=== PATIENT | female | born 1995 | race Caucasian/White ===

== ENCOUNTER 2017-01-28 19:27 | Inpatient (IN) ==
[2017-01-28] MEDS ORDERED: ONDANSETRON 4 MG/2 ML VIAL IV PRN (21:52)
[2017-01-28] MEDS ORDERED: MEPERIDINE 50 MG/1 ML VIAL IM PRN (21:52)
[2017-01-28] MEDS ORDERED: BUTORPHANOL 1 MG/ML VIAL IV PRN (21:52)
[2017-01-28] MEDS ORDERED: LACTATED RINGERS 250 ML IV ONE (21:52)
[2017-01-28] MEDS: LACTATED RINGERS 1,000 ML IV SCH ×2 (21:55→23:41)
[2017-01-28 22:23] LABS: Basophils % 0.2 % (0.0-0.8); Eosinophils # 0.1 10*3/uL (0.0-0.87); Eosinophils % 0.4 % (0.00-10.9); Hematocrit 35.9 VOL% (35.7-47.0); Hemoglobin 12.1 GM/DL (12.0-16.0); Immature Granulocytes % 1.2 %; Immature Granulocytes Absolute 0.16 #; Lymphocytes # 2.7 10*3/uL (1.4-4.0); Lymphocytes % 20.8 % (21.3-54.2); Mean Corpuscular HGB Conc 33.7 GM/DL (32-36); Mean Corpuscular Hemoglobin 28 PG (27-34); Mean Corpuscular Volume 83.7 FL (87-102); Mean Platelet Volume 12.7 FL (9.6-12.0); Monocytes # 0.9 10*3/uL (0.11-0.8); Monocytes % 6.8 % (1.7-12.7); Neutrophils # 9.1 10*3/uL (1.4-7.4); Neutrophils % 70.6 % (38.7-73.9); Platelet Count 147 T/CUMM (130-400); Red Blood Count 4.29 MC/CUMM (3.8-5.5); Red Cell Distribution Width 14.9 % (9.3-17.3); White Blood Count 12.9 T/CUMM (4-12)
[2017-01-28] MEDS ORDERED: PROMETHAZINE 25 MG/1 ML VIAL IM ONE (22:32)
[2017-01-28] MEDS ORDERED: FAMOTIDINE 20 MG/2 ML VIAL IV ONE (22:32)
[2017-01-28] MEDS ORDERED: LACTATED RINGERS 1,000 ML IV ONE (22:32)
[2017-01-28] MEDS ORDERED: ePHEDrine 50 MG/ML AMP IV PRN (22:32)
[2017-01-28] MEDS ORDERED: CITRIC ACID/SODIUM CITRATE 30 ML UDCUP PO ONE (22:32)
[2017-01-28] MEDS ORDERED: fentaNYL 2 MCG/ROPIV 0.2% EPID 150 ML EPIDURAL SCH (22:32)
[2017-01-28] MEDS ORDERED: diphenhydrAMINE 50 MG/1 ML VIAL IV PRN ×2 (22:32)
[2017-01-28] MEDS ORDERED: hydrOXYzine HCL 25 MG/1 ML VIAL IM PRN (22:32)
[2017-01-29 01:16] LABS: Apearance,Urine CLEAR (Clear); Bilirubin,Urine Negative (Negative); Blood, Urine Negative (Negative); Glucose,Urine (UA) Negative (Negative); Ketones,Urine 20 mg/dL (Negative); Mucus,Urine Few /LPF (Occasional); Nitrite,Urine Negative (Negative); Protein,Urine 30 MG/DL; RBC,Urine 2 /HPF (0-4); Squamous Epithelial Cell,Urine Occasional /HPF (0-10); Urine Color Yellow (Yellow); Urine Specific Gravity 1.019 (1.001-1.035); Urine Urobilinogen < 2.0 EU/DL (0.2-1.0); WBC,Urine 1 /HPF (0-6)
[2017-01-29] MEDS ORDERED: OXYTOCIN/LR 20 UNIT/1,000 ML BAG IV ONE ×2 (04:45→05:57)
[2017-01-29] MEDS ORDERED: OXYTOCIN/LR 20 UNIT/1,000 ML BAG IV SCH (05:00)
--- NOTE | 2017-01-29 05:53 | OB/GYN History & Physical ---
History of Present Illness Chief complaint: Spontaneous rupture membranes, 38 weeks and 4 days History of present illness: Ms. Ennis is a 21 year old female 1 para 0 admitted in active labor, spontaneous rupture membranes at 38 weeks and 4 days. Onset of labor at 11:32 PM, heart tones category 1, fluid was clear, contractions were irregular. Labor instructions were given epidural will be administered when appropriate. 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: Vital Signs Temp Pulse Resp BP Pulse Ox 01/29/17 04:00 97.9 F 100 H 18 129/70 95 01/29/17 02:00 98.2 F 88 18 126/61 98 01/29/17 00:00 98.3 F 96 H 20 128/63 01/28/17 22:02 97.8 F 105 H 20 136/86 01/28/17 20:00 97.2 F L 87 20 141/84 99 General appearance: no acute distress - Antepartum / Post Antepartum Exam Cervix - Dilatation: 3 centimeters, 80% effaced, -2 station - Head Head exam: Present: normal inspection - Eye Eye exam: Present: EOMI Pupils: Present: DAVIAN - ENT ENT exam: Present: normal exam - Neck Neck exam: Present: normal inspection - Respiratory Respiratory exam: Present: clear to auscultation bilaterally - Breast Breasts: as per HPI Menstruation: as per HPI - Cardiovascular Cardiovascular exam: Present: regular rate and rhythm - GI/Abdominal GI/Abdominal exam: Present: normal bowel sounds - Extremities Exam Extremities exam: Present: normal inspection - Back Exam Back exam: Present: normal inspection - Neurological Exam Neurological exam: Present: oriented X3 - Psychiatric Psychiatric exam: Present: normal affect - Skin Skin exam: Present: normal color Assessment and Plan (1) Active labor Status: Acute Assessment and plan: Anticipate , risks benefits were thoroughly discussed she is in full agreement at 38 weeks and 4 days Current Visit: Yes Results - Labs CBC & BMP: 01/28/17 22:11 Quality Measures - VTE Contraindication to Pharmacological VTE Prophylaxis: Continuous Epidural Infusion
[2017-01-29] MEDS ORDERED: ACETAMINOPHEN 325 MG TABLET PO PRN (05:57)
[2017-01-29] MEDS ORDERED: oxyCODONE/ACETAMINOPHEN 5-325 MG TABLET PO PRN (05:57)
[2017-01-29] MEDS ORDERED: BISACODYL 10 MG SUPP RECTAL PRN (05:57)
[2017-01-29] MEDS ORDERED: WITCH HAZEL PADS 100/JAR TOP PRN (05:57)
[2017-01-29] MEDS ORDERED: HYDROCORTISONE 2.5% RECTAL CREAM 30 GM TUBE TOP PRN (05:57)
[2017-01-29] MEDS ORDERED: BENZOCAINE 20%/MENTHOL 0.5% SPRAY 56 GM CAN TOP PRN (05:57)
[2017-01-29] MEDS ORDERED: LANOLIN 50% CREAM 0.3 OZ TUBE TOP PRN (05:57)
[2017-01-29] MEDS ORDERED: ONDANSETRON 4 MG/2 ML VIAL IV PRN (05:57)
--- NOTE | 2017-01-29 05:57 | Event Note ---
Stage I of labor Spontaneous rupture membranes clear fluid heart tones category 1 Epidural anesthetic IV Pitocin initiated approximately 10 cm dilated External monitoring Stage II +2 station vacuum extraction applied 1 application only LML episiotomy was performed prior to this Delivery of a male infant Delivery time was at 5:38 AM Cord blood and cord gas was obtained weight is pending, mother is applying skin the skin bonding Stage III 3 cord vessels Blood loss less than 300 cc Senna was removed without any complication Episiotomy repair without any complication Delivery of placenta was at 5:40 AM
[2017-01-29] MEDS ORDERED: MEASLES/MUMPS/RUBELLA VACCINE 0.5 ML VIAL SUBCUT ONE (07:00)
[2017-01-29] MEDS ORDERED: DIPH/TET/ACEL PERT BOOSTER VACCINE 0.5 ML VIAL IM ONE (07:00)
[2017-01-29] MEDS ORDERED: RHO(D) IMMUNE GLOBULIN 300 MCG SYRINGE IM ONE (07:00)
[2017-01-29] MEDS: IBUPROFEN 800 MG TABLET PO PRN ×3 (09:57→23:52)
[2017-01-29] MEDS: oxyCODONE/ACETAMINOPHEN 5-325 MG TABLET PO PRN ×3 (09:58→23:51)
[2017-01-29] MEDS: DOCUSATE SODIUM 100 MG CAPSULE PO SCH ×2 (09:59→21:54)
--- NOTE | 2017-01-29 12:30 | OB/GYN Progress Note ---
Assessment and Plan (1) Vaginal delivery Status: Acute Assessment and plan: Initiate routine orders. 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 Bonding well with . 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: Vital Signs Temp Pulse Resp BP Pulse Ox 01/29/17 09:00 98.3 F 99 H 20 145/73 96 01/29/17 08:00 99.4 F 88 20 126/62 01/29/17 04:00 97.9 F 100 H 18 129/70 95 01/29/17 02:00 98.2 F 88 18 126/61 98 01/29/17 00:00 98.3 F 96 H 20 128/63 01/28/17 22:02 97.8 F 105 H 20 136/86 01/28/17 20:00 97.2 F L 87 20 141/84 99 General appearance: no acute distress - Antepartum / Post Post Exam Breast: bilateral: normal Abdomen obstetrics: Present: bowel sounds normal Vagina: Present: discharge (Moderate lochia room) Uterus exam: Present: enlarged (Fundus firm at umbilicus and midline) Anus/Rectum: Present: normal perianal skin - Respiratory Respiratory exam: Present: clear to auscultation bilaterally - Cardiovascular Cardiovascular exam: Present: regular rate and rhythm - GI/Abdominal GI/Abdominal exam: Present: normal bowel sounds, soft - Extremities Exam Extremities exam: Present: normal inspection - Neurological Exam Neurological exam: Present: alert, oriented X3 - Psychiatric Psychiatric exam: Present: normal affect, normal mood - Skin Skin exam: Present: normal color, warm Results - Labs CBC & BMP: 01/28/17 22:11
[2017-01-30 06:33] LABS: Basophils % 0.3 % (0.0-0.8); Eosinophils # 0.1 10*3/uL (0.0-0.87); Eosinophils % 0.7 % (0.00-10.9); Hematocrit 32.6 VOL% (35.7-47.0); Hemoglobin 10.8 GM/DL (12.0-16.0); Immature Granulocytes % 1.2 %; Immature Granulocytes Absolute 0.16 #; Lymphocytes # 3.4 10*3/uL (1.4-4.0); Lymphocytes % 25.3 % (21.3-54.2); Mean Corpuscular HGB Conc 33.1 GM/DL (32-36); Mean Corpuscular Hemoglobin 28 PG (27-34); Mean Corpuscular Volume 85.8 FL (87-102); Monocytes % 7.2 % (1.7-12.7); Neutrophils # 8.9 10*3/uL (1.4-7.4); Neutrophils % 65.3 % (38.7-73.9); Platelet Count 112 T/CUMM (130-400); Red Cell Distribution Width 15.5 % (9.3-17.3); White Blood Count 13.6 T/CUMM (4-12)
[2017-01-30] MEDS: oxyCODONE/ACETAMINOPHEN 5-325 MG TABLET PO PRN ×2 (07:50→13:20)
[2017-01-30] MEDS: IBUPROFEN 800 MG TABLET PO PRN ×2 (07:51→13:20)
[2017-01-30] MEDS: DOCUSATE SODIUM 100 MG CAPSULE PO SCH ×2 (07:51→13:15)
[2017-01-30 13:35] VITALS: BP 117/78
--- NOTE | 2017-01-30 15:26 | Anesthesia Post-Op ---
Anesthesia Post OP - Post Ansesthetic Evaluation Patient seen in post op: Yes Resp: within normal limits CV: within normal limits Mental: within normal limits Temp: within normal limits Dspd-[id number]: within normal limits Nausea and Vomiting: within normal limits Pain: within normal limits
--- NOTE | 2017-02-10 16:26 | Physician Query Form ---
CLICK EDIT DOCUMENT TO SELECT QUERY ANSWER --> OK --> SIGN Lalita Baker RN Clinical [employer] W) [phone] (f) [phone] [email or web address] PROVIDERS: Make your selection(s) from the choices in EACH section by typing an "x" and enter comments in the comment section. Please use your independent medical judgment in providing your response. This request does not imply that any particular answer is desired or expected. CLINICAL INDICATORS: (Providers should not edit this section) Based on documentation of "+2 station vacuum extraction applied 1 application only" Please clarify the reason for use of Vacuum Extraction Based on the above, could you clarify the appropriate diagnosis, if significant , that supports the above abnormalities and additional evaluation, monitoring, and/or treatment rendered: ( ) Distress ( ) Maternal Exhaustion ( ) Labor Complication ( ) Attempted or Failed Delivery ( ) Other, please specify: ( ) Clinically unable to determine COMMENTS: PLEASE ALSO DOCUMENT RESPONSE IN PROGRESS NOTES AND/OR DISCHARGE SUMMARY Use of terms such as suspected, likely, or probable (associated with a specific diagnosis that is being evaluated, monitored, or treated as if it exists) are acceptable and can be restated in the discharge summary if not ruled out. [facility]
--- NOTE | 2017-03-21 04:41 | Discharge Summary ---
DATE OF ADMISSION: 01/28/2017 DATE OF DISCHARGE: 01/30/2017 The patient delivered vaginally a viable infant male. Apgars were 8 and 9. She remained in the hosp ital for two days without any major complaints, voided well multiple bowel movements. No excessive vaginal bleeding. She will be discharged and follow up our office in six weeks for further postoperative care.
== END 2017-01-30 18:25 | disposition home or self-care (01) | DRG 775 ==
LOC: N.LDOUT 19:27 → N.LD 19:29 → N.OB 01-29 08:31
PROVIDERS: ADMIT Obstetrics & Gynecology; ATTEND Obstetrics & Gynecology

== ENCOUNTER 2021-02-05 05:16 | Inpatient (IN) ==
[2021-02-05] MEDS ORDERED: BUTORPHANOL 2 MG/ML VIAL IV PRN (05:25)
[2021-02-05] MEDS ORDERED: ONDANSETRON 4 MG/2 ML VIAL IV PRN (05:25)
[2021-02-05] MEDS ORDERED: MEPERIDINE 50 MG/1 ML VIAL IV PRN (05:25)
[2021-02-05] MEDS ORDERED: OXYTOCIN/LR 20 UNIT/1,000 ML BAG IV SCH (05:30)
[2021-02-05] MEDS: LACTATED RINGERS 1,000 ML IV SCH ×2 (05:55→13:27)
[2021-02-05 05:57] LABS: Basophils % 0.2 % (0.0-0.8); Eosinophils # 0.1 10*3/uL (0.0-0.87); Hematocrit 29.5 VOL% (35.7-47.0); Hemoglobin 9.1 GM/DL (12.0-16.0); Immature Granulocytes % 1.6 %; Immature Granulocytes Absolute 0.15 #; Lymphocytes # 2.5 10*3/uL (1.4-4.0); Lymphocytes % 26.2 % (21.3-54.2); Mean Corpuscular HGB Conc 30.8 GM/DL (32-36); Mean Corpuscular Volume 83.3 FL (87-102); Mean Platelet Volume 11.3 FL (9.6-12.0); Monocytes % 7.9 % (1.7-12.7); Neutrophils % 63.1 % (38.7-73.9); Platelet Count 150 T/CUMM (130-400); Red Blood Count 3.54 MC/CUMM (3.8-5.5); Red Cell Distribution Width 13.6 % (9.3-17.3); White Blood Count 9.6 T/CUMM (4-12)
[2021-02-05 06:13] LABS: Bacteria,Urine Occasional /HPF (Few); Bilirubin,Urine Negative (Negative); Blood, Urine Negative (Negative); Glucose,Urine (UA) Negative (Negative); Ketones,Urine 5 mg/dL (Negative); Mucus,Urine Occasional /LPF (Occasional); Nitrite,Urine Negative (Negative); Protein,Urine Negative; RBC,Urine 9 /HPF (0-4); Squamous Epithelial Cell,Urine Occasional /HPF (0-10); Urine Appearance Slightly Hazy (Clear); Urine Color Yellow (Yellow); Urine Specific Gravity 1.015 (1.001-1.035); Urine Urobilinogen < 2.0 EU/DL (0.2-1.0)
[2021-02-05 06:21] LABS: Albumin 2.6 G/DL (3.4-5.0); Bilirubin,Total 0.4 MG/DL (0.20-1.00); Calcium 8.4 MG/DL (8.5-10.1); Osmolality,Calculated 271.7 MOS/KG (273-304); Potassium 3.9 MMOL/L (3.5-5.1); Total Protein 6.7 G/DL (6.4-8.2)
[2021-02-05] MEDS ORDERED: FAMOTIDINE 20 MG/2 ML VIAL IV ONE ×2 (15:14→15:16)
[2021-02-05] MEDS ORDERED: LACTATED RINGERS 1,000 ML IV ONE (15:14)
[2021-02-05] MEDS ORDERED: CITRIC ACID/SODIUM CITRATE 30 ML UDCUP PO ONE (15:14)
[2021-02-05] MEDS ORDERED: ePHEDrine 50 MG/ML VIAL IV PRN (15:14)
[2021-02-05] MEDS ORDERED: NALOXONE 0.4 MG/ML VIAL IV PRN (15:14)
[2021-02-05] MEDS ORDERED: diphenhydrAMINE 50 MG/1 ML VIAL IV PRN ×2 (15:14)
[2021-02-05] MEDS ORDERED: fentaNYL 2 MCG/ROPIV 0.2% EPID 100 ML EPIDURAL SCH (15:30)
[2021-02-05 16:24] LABS: Bilirubin,Urine Negative (Negative); Blood, Urine Negative (Negative); Glucose,Urine (UA) Negative (Negative); Ketones,Urine 80 mg/dL (Negative); Mucus,Urine Occasional /LPF (Occasional); Nitrite,Urine Negative (Negative); Protein,Urine Negative; RBC,Urine <1 /HPF (0-4); Urine Appearance CLEAR (Clear); Urine Color Yellow (Yellow); Urine Specific Gravity 1.017 (1.001-1.035); Urine Urobilinogen < 2.0 EU/DL (0.2-1.0)
[2021-02-05] MEDS ORDERED: TRANEXAMIC ACID 1,000 MG/10 ML VIAL ONE (17:39)
[2021-02-05] MEDS ORDERED: miSOPROStoL 200 MCG TABLET ONE (17:39)
[2021-02-05] MEDS ORDERED: CARBOPROST TROMETHAMINE 250 MCG/ML AMP IM ONE (17:40)
[2021-02-05] MEDS ORDERED: SODIUM CHLORIDE 0.9% 0 ML IV ONE (17:40)
[2021-02-05] MEDS ORDERED: METHYLERGONOVINE 0.2 MG/1 ML AMP ONE (17:40)
[2021-02-05] MEDS ORDERED: OXYTOCIN/LR 20 UNIT/1,000 ML BAG IV ONE ×3 (19:00→22:33)
[2021-02-05 19:10] LABS: Cord Arterial Blood HCO3 19.9 MMOL/L
[2021-02-05 19:12] LABS: Cord Venous Blood HCO3 20.2 MMOL/L; Cord Venous Blood PCO2 39.2 MMHG; Cord Venous Blood PO2 27.9
[2021-02-05] MEDS ORDERED: DIPH/TET/ACEL PERT BOOSTER VACCINE 0.5 ML VIAL IM ONE (22:33)
[2021-02-05] MEDS ORDERED: BISACODYL 10 MG SUPP RECTAL PRN (22:33)
[2021-02-05] MEDS ORDERED: HYDROCORTISONE 2.5% RECTAL CREAM 30 GM TUBE TOP PRN (22:33)
[2021-02-05] MEDS ORDERED: oxyCODONE/ACETAMINOPHEN 5-325 MG TABLET PO PRN (22:33)
[2021-02-05] MEDS ORDERED: WITCH HAZEL PADS 100/JAR TOP PRN (22:33)
[2021-02-05] MEDS ORDERED: RHO(D) IMMUNE GLOBULIN 300 MCG SYRINGE IM ONE (22:33)
[2021-02-05] MEDS ORDERED: MEASLES/MUMPS/RUBELLA VACCINE 0.5 ML VIAL SUBCUT ONE (22:33)
[2021-02-05] MEDS ORDERED: LANOLIN 50% CREAM 0.3 OZ TUBE TOP PRN (22:33)
[2021-02-05] MEDS ORDERED: ACETAMINOPHEN 325 MG TABLET PO PRN (22:33)
[2021-02-05] MEDS ORDERED: BENZOCAINE 20%/MENTHOL 0.5% SPRAY 56 GM CAN TOP PRN (22:33)
[2021-02-06] MEDS: oxyCODONE/ACETAMINOPHEN 5-325 MG TABLET PO PRN ×2 (01:00→08:30)
[2021-02-06] MEDS: IBUPROFEN 800 MG TABLET PO PRN ×3 (04:07→20:45)
[2021-02-06 06:03] LABS: Basophils % 0.1 % (0.0-0.8); Eosinophils % 0.2 % (0.00-10.9); Hematocrit 27.6 VOL% (35.7-47.0); Hemoglobin 9.1 GM/DL (12.0-16.0); Immature Granulocytes Absolute 0.14 #; Lymphocytes # 2.2 10*3/uL (1.4-4.0); Lymphocytes % 15.6 % (21.3-54.2); Mean Corpuscular Volume 79.8 FL (87-102); Mean Platelet Volume 11.2 FL (9.6-12.0); Monocytes % 8.9 % (1.7-12.7); Neutrophils % 74.2 % (38.7-73.9); Platelet Count 154 T/CUMM (130-400); Red Blood Count 3.46 MC/CUMM (3.8-5.5); Red Cell Distribution Width 13.6 % (9.3-17.3); White Blood Count 13.9 T/CUMM (4-12)
[2021-02-06] MEDS: DOCUSATE SODIUM 100 MG CAPSULE PO SCH ×2 (08:30→20:46)
[2021-02-06] MEDS: FERROUS SULFATE 325 MG TABLET PO SCH ×2 (08:30→20:46)
[2021-02-07] MEDS: oxyCODONE/ACETAMINOPHEN 5-325 MG TABLET PO PRN (04:53)
[2021-02-07] MEDS: DOCUSATE SODIUM 100 MG CAPSULE PO SCH ×2 (08:40→08:41)
[2021-02-07] MEDS: FERROUS SULFATE 325 MG TABLET PO SCH (08:41)
[2021-02-07] MEDS ORDERED: MAGNESIUM HYDROXIDE SUSP 30 ML UDCUP PO PRN (11:16)
[2021-02-07 11:38] VITALS: BP 125/78
== END 2021-02-07 13:05 | disposition home or self-care (01) | DRG 560 ==
LOC: N.LD 05:16 → N.OB 22:20
PROVIDERS: ADMIT Obstetrics & Gynecology; ATTEND Obstetrics & Gynecology